=== PATIENT | female | born 1950 | race Caucasian/White ===

== ENCOUNTER 2018-04-26 20:08 | Inpatient (IN) | payer OTHER ==
[2018-04-26] MEDS ORDERED: ALBUTEROL 2.5 MG/3 ML NEB SOL ONE ×3 (20:20→21:39)
[2018-04-26] MEDS ORDERED: IPRATROPIUM BROM 0.5MG/2.5ML ONE ×3 (20:20→21:39)
[2018-04-26] MEDS ORDERED: LORazepam 2 MG/ML VIAL ONE (20:29)
[2018-04-26] MEDS ORDERED: Magnesium Sulfate 1gm IVPB 2 GM/100 ML BAG IV ONE (20:30)
--- NOTE | 2018-04-26 20:57 | RAD REPORT ---
EXAM DESCRIPTION: RAD - Chest Single View - 04/26/2018 8:47 pm CLINICAL HISTORY: COPD Chest pain. COMPARISON: 05/04/2017 FINDINGS: Portable technique limits examination quality. The lungs are mildly emphysematous but grossly clear. The heart is normal in size. No displaced fract ures.Aortic atherosclerosis. Prominent degenerative change right shoulder. IMPRESSION: No acute intrathoracic process suspected.
[2018-04-26 21:10] LABS: Absolute Lymphocytes (CBC) 4.8 K/uL (0.7-4.9); Absolute Monocytes 1.4 K/uL (0.1-1.3); Absolute Neutrophil 10.5 K/uL (1.8-8.0); Basophils % 1.2 % (0-1.3); Eosinophils % 0.6 % (0-4.4); Hematocrit 36.6 % (36.0-45.0); Lymphocytes % 28.4 % (15.3-44.8); MCH 30.9 pg (27.0-35.0); MCV 93.1 fL (80-100); MPV 9.3 fL (7.6-11.3); RBC Red Blood Cell Count 3.93 M/uL (3.86-4.86)
[2018-04-26 21:16] LABS: Protime INR 0.97
[2018-04-26 21:25] LABS: Albumin 2.9 g/dL (3.4-5.0); Bilirubin Direct 0.2 mg/dL (0-0.2); Bilirubin Total 0.2 mg/dL (0.2-1.0); Potassium 4.6 mmol/L (3.5-5.1); Protein, Total 7.8 g/dL (6.4-8.2)
[2018-04-26 21:35] LABS: Urine Blood NEGATIVE (NEG); Urine Glucose NEGATIVE (NEG); Urine Protein 2+ (NEG); Urine Specific Gravity 1.025 (1.005-1.030); Urine pH 5.5 (5.0-7.0)
[2018-04-26 21:37] LABS: Urine Bacteria >50 /HPF (<20); Urine Culture Reflex Order REFLEXED; Urine RBC <5 /HPF (NONE SEEN); Urine Trichomonas PRESENT (NONE SEEN)
[2018-04-26] MEDS ORDERED: FENTANYL CITR 100 MCG/2 ML ONE (21:57)
[2018-04-26] MEDS ORDERED: DEXAMETHASONE 10 MG/ML VIAL ONE (21:59)
[2018-04-26] MEDS ORDERED: AZITHROMYCIN 500 MG/250 ML BAG ONE (22:00)
[2018-04-26] MEDS ORDERED: CEFTRIAXONE/SWI 1gm 2 GM/20 ML SYR ONE (22:00)
--- NOTE | 2018-04-26 23:35 | EDPHYS ---
Physician Documentation [facility] Name: Brisa Jaime Age: 68 yrs Sex: Female : 1950 Arrival Date: 04/26/2018 Time: 20:12 Bed 6 Private MD: ED Physician Vladimir Cooper HPI: 04/26 22:12 This 68 yrs old Female presents to ER via Wheelchair with complaints of wa shortness of breath. 22:12 The patient has shortness of breath at rest. Onset: The symptoms/episode began/occurred wa 2 day(s) ago. Duration: The symptoms are continuous, and are steadily getting worse. The patient's shortness of breath has no apparent modifying factors. Associated signs and symptoms: The patient has no apparent associated signs or symptoms. Severity of symptoms: At their worst the symptoms were moderate in the emergency department the symptoms are worse moderately. The patient has experienced similar episodes in the past, multiple times, h/o COPD. pt still smokes. The patient has not recently seen a physician. Historical: - Allergies: 20:31 No Known Allergies; fc - Home Meds: 20:31 Unable to obtain [Active]; fc - PMHx: 20:31 Hypertension; PAD; PVD; hyperglycemia; Osteomyelitis; COPD; fc - PSHx: 20:31 Left foot surg; fc - Immunization history:: Last tetanus immunization: unknown. - Social history:: Smoking status: Patient uses tobacco products, denies chronic smoking, but will smoke occasionally. - Ebola Screening: : Patient negative for fever greater than or equal to 101.5 degrees Fahrenheit, and additional compatible Ebola Virus Disease symptoms Patient denies exposure to infectious person Patient denies travel to an Ebola-affected area in the 21 days before illness onset. - Family history:: not pertinent. - Hospitalizations: : No recent hospitalization is reported. ROS: 22:17 Constitutional: Negative for fever, chills, and weight loss, Eyes: Negative for injury, wa pain, redness, and discharge, ENT: Negative for injury, pain, and discharge, Neck: Negative for injury, pain, and swelling, Cardiovascular: Negative for chest pain, palpitations, and edema, Abdomen/GI: Negative for abdominal pain, nausea, vomiting, diarrhea, and constipation, Back: Negative for injury and pain, : Negative for injury, bleeding, discharge, and swelling, MS/Extremity: Negative for injury and deformity, Skin: Negative for injury, rash, and discoloration, Neuro: Negative for headache, weakness, numbness, tingling, and seizure. 22:17 Respiratory: Positive for shortness of breath, at rest. Negative for cough, sputum production. 22:17 All other systems are negative. Exam: 22:17 Head/Face: Normocephalic, atraumatic. Eyes: Pupils equal round and reactive to light, wa extra-ocular motions intact. Lids and lashes normal. Conjunctiva and sclera are non-icteric and not injected. Cornea within normal limits. Periorbital areas with no swelling, redness, or edema. ENT: Nares patent. No nasal discharge, no septal abnormalities noted. Tympanic membranes are normal and external auditory canals are clear. Oropharynx with no redness, swelling, or masses, exudates, or evidence of obstruction, uvula midline. Mucous membranes moist. Neck: Trachea midline, no thyromegaly or masses palpated, and no cervical lymphadenopathy. Supple, full range of motion without nuchal rigidity, or vertebral point tenderness. No Meningismus. Chest/axilla: Normal chest wall appearance and motion. Nontender with no deformity. No lesions are appreciated. Cardiovascular: Regular rate and rhythm with a normal S1 and S2. No gallops, murmurs, or rubs. Normal PMI, no JVD. No pulse deficits. Abdomen/GI: Soft, non-tender, with normal bowel sounds. No distension or tympany. No guarding or rebound. No evidence of tenderness throughout. Back: No spinal tenderness. No costovertebral tenderness. Full range of motion. MS/ Extremity: Pulses equal, no cyanosis. Neurovascular intact. Full, normal range of motion. Neuro: Awake and alert, GCS 15, oriented to person, place, time, and situation. Cranial nerves II-XII grossly intact. Motor strength 5/5 in all extremities. Sensory grossly intact. Cerebellar exam normal. Normal gait. 22:17 Constitutional: The patient appears alert, anxious, in obvious distress, moderately distressed. 22:17 Respiratory: moderate respiratory distress is noted, Respirations: tachypnea, that is moderate, Breath sounds: wheezing: that is moderate, is heard diffusely, Respiratory rate: elevated 22:20 Skin: Appearance: Color: dusky, diaphoretic. wa Vital Signs: 20:15 BP 134 / 73; Pulse 77; Resp 28; Pulse Ox 93% on R/A; Weight 43.09 kg; Height 5 ft. 0 fc in. (152.40 cm); Pain 0/10; 21:15 BP 101 / 59; Pulse 75; Resp 25; Pulse Ox 96% ; bp 22:57 BP 104 / 55; Pulse 71; Resp 24; Pulse Ox 100% ; bp 23:51 BP 85 / 51; Pulse 64; Resp 24; Pulse Ox 100% on BiPAP; bp 04/27 01:00 BP 107 / 62; Pulse 63; Resp 24; Pulse Ox 93% on R/A; bp 01:47 BP 95 / 54; Pulse 70; Resp 20; Pulse Ox 92% on R/A; bp 04/26 20:15 Body Mass Index 18.55 (43.09 kg, 152.40 cm) fc MDM: 04/26 20:17 Patient medically screened. nh 22:20 Differential diagnosis: Anxiety Reaction asthma, Bronchitis CHF exacerbation, Chronic nh Obstructive Pulmonary Disease pneumonia, pulmonary edema, reactive airway disease. 23:30 Data reviewed: vital signs, nurses notes. Test interpretation: by ED physician or nh midlevel provider: Labs noted for hyperglycemia at 201. elevated BNP 6650. UA noted for pyuria 10-20 wbc. positive for trichomonas. CXR: no acute process. Response to treatment: the patient's symptoms have markedly improved after treatment. Physician consultation: Mariza Lemons MD was called at 23:33. Admission orders: after a detailed discussion of the patient's condition and case, the admit orders are written by ms. 04/27 00:16 Test interpretation: by ED physician or midlevel provider: EKG: HR 73. nml sinus. no nh acute dysrhythmic changes. 04/26 20:18 Order name: Blood Culture Adult (2) nh 04/26 20:18 Order name: BMP; Complete Time: 23:29 nh 04/26 20:18 Order name: CBC with Diff; Complete Time: 23:29 nh 04/26 20:18 Order name: Hepatic Function; Complete Time: 23:29 nh 04/26 20:18 Order name: Magnesium; Complete Time: 23:30 nh 04/26 20:18 Order name: NT PRO-BNP; Complete Time: 23:29 nh 04/26 20:18 Order name: XRAY CXR (1 view); Complete Time: 23:30 nh 04/26 20:18 Order name: PT-INR; Complete Time: 23:30 nh 04/26 20:18 Order name: Troponin (emerg Dept Use Only); Complete Time: 23:30 nh 04/26 21:14 Order name: Urine Microscopic Only; Complete Time: 23:29 04/26 21:23 Order name: Urine Dipstick--Ancillary (enter results); Complete Time: 23:29 jw5 04/26 21:35 Order name: ABG nh 04/26 21:35 Order name: ABG Arterial Blood Gas [facility] 04/26 21:38 Order name: Urine Culture [facility] 04/26 20:18 Order name: EKG; Complete Time: 20:19 nh 04/26 20:18 Order name: Cardiac monitoring; Complete Time: 20:21 nh 04/26 20:18 Order name: EKG - Nurse/Tech; Complete Time: 20:21 nh 04/26 20:18 Order name: IV Saline Lock; Complete Time: 20:51 nh 04/26 20:18 Order name: Labs collected and sent; Complete Time: 20:51 nh 04/26 20:19 Order name: BIPAP nh 04/26 20:18 Order name: O2 Per Protocol; Complete Time: 20:52 nh 04/26 20:18 Order name: O2 Sat Monitoring; Complete Time: 20:52 nh 04/26 20:18 Order name: Urine Dipstick-Ancillary (obtain specimen); Complete Time: 21:26 nh Administered Medications: 04/26 20:21 Drug: Albuterol 2.5 mg Route: Inhalation; bp 20:21 Drug: AtroVENT Aerosol 0.5 mg Route: Inhalation; bp 20:30 Drug: Magnesium Sulfate 2 grams Route: IVPB; Infused Over: 2 hrs; Site: right forearm; bp 04/27 00:00 Follow up: IV Status: Completed infusion bp 04/26 20:30 Drug: Ativan 0.5 mg Route: IVP; Site: right forearm; bp 20:51 Follow up: Response: Anxiety decreased bp 21:37 Drug: Albuterol 2.5 mg Route: Inhalation; bp 21:37 Drug: AtroVENT Aerosol 0.5 mg Route: Inhalation; bp 21:56 Drug: fentaNYL (PF) 50 mcg Route: IVP; Site: right forearm; bp 22:30 Follow up: Response: No adverse reaction; Marked relief of symptoms ea 21:59 Drug: Decadron - Dexamethasone 10 mg Route: IVP; Site: right forearm; ea 22:15 Follow up: Response: No adverse reaction ea 21:59 Drug: Rocephin - (cefTRIAXone) 2 grams Route: IVPB; Infused Over: 30 mins; Site: right ea forearm; 04/27 00:01 Follow up: IV Status: Completed infusion bp 04/26 22:47 Drug: Zithromax 500 mg Route: IVPB; Infused Over: 1 hrs; Site: right forearm; ea 04/27 00:01 Follow up: IV Status: Completed infusion bp Disposition: 04/26 23:33 Critical Care:. Critical Care:. nh Disposition: 04/26/18 23:34 Hospitalization ordered by Mariza Lemons for Inpatient Admission. Preliminary diagnosis are Acute Dyspnea, COPD Exacerbation, Acute UTI. - Bed requested for Telemetry/MedSurg (Inpatient). - Status is Inpatient Admission. bp - Condition is Stable. - Problem is an acute exacerbation. - Symptoms have improved. UTI on Admission? Yes Critical care time excluding procedures: 23:33 Critical care time: Bedside Care: 20 minutes, Consultation: 5 minutes, Family wa Intervention: 5 minutes. Total time: 30 minutes Signatures: Dispatcher [employer] EDNa Gunn RN RN kl Chretien, Felicia RN Dory Rosas RN RN ea Appiah, William, MD MD wa Peltier, Brian, RN RN bp Corrections: (The following items were deleted from the chart) 04/27 01:09 04/26 23:34 Hospitalization Ordered by Mariza Lemons MD for Inpatient Admission. cintia Preliminary diagnosis is Acute Dyspnea; COPD Exacerbation; Acute UTI. Bed requested for Telemetry/MedSurg (Inpatient). Status is Inpatient Admission. Condition is Stable. Problem is an acute exacerbation. Symptoms have improved. UTI on Admission? Yes. nh 04/27 01:47 01:09 04/26/2018 23:34 Hospitalization Ordered by Mariza Lemons MD for Inpatient bp Admission. Preliminary diagnosis is Acute Dyspnea; COPD Exacerbation; Acute UTI. Bed requested for Telemetry/MedSurg (Inpatient). Status is Inpatient Admission. Condition is Stable. Problem is an acute exacerbation. Symptoms have improved. UTI on Admission? Yes. kl
--- NOTE | 2018-04-26 23:35 | ER ---
Nurse's Notes [facility] Name: Brisa aJime Age: 68 yrs Sex: Female : 1950 Arrival Date: 04/26/2018 Time: 20:12 Bed 6 Private MD: Diagnosis: Acute Dyspnea;COPD Exacerbation;Acute UTI Presentation: 04/26 20:15 Presenting complaint: Patient states: that she has COPD and has been having trouble fc breathing since yesterday. Has cough but is not coughing any sputum up. Denies any fever. Transition of care: patient was not received from another setting of care. Onset of symptoms was April 25, 2018. Risk Assessment: Do you want to hurt yourself or someone else? Patient reports no desire to harm self or others. Initial Sepsis Screen: Does the patient meet any 2 criteria? RR > 20 per min. Yes Does the patient have a suspected source of infection? No. Patient's initial sepsis screen is negative. Care prior to arrival: None. 20:15 Method Of Arrival: Wheelchair fc 20:15 Acuity: ILANA 2 fc Historical: - Allergies: 20:31 No Known Allergies; fc - Home Meds: 20:31 Unable to obtain [Active]; fc - PMHx: 20:31 Hypertension; PAD; PVD; hyperglycemia; Osteomyelitis; COPD; fc - PSHx: 20:31 Left foot surg; fc - Immunization history:: Last tetanus immunization: unknown. - Social history:: Smoking status: Patient uses tobacco products, denies chronic smoking, but will smoke occasionally. - Ebola Screening: : Patient negative for fever greater than or equal to 101.5 degrees Fahrenheit, and additional compatible Ebola Virus Disease symptoms Patient denies exposure to infectious person Patient denies travel to an Ebola-affected area in the 21 days before illness onset. - Family history:: not pertinent. - Hospitalizations: : No recent hospitalization is reported. Screenin:26 Abuse screen: Denies threats or abuse. Nutritional screening: No deficits noted. fc Tuberculosis screening: No symptoms or risk factors identified. Fall Risk None identified. Assessment: 20:15 General: Appears distressed, comfortable, slender, Behavior is agitated, anxious, bp Smells of CIGARETTES. Pain: Denies pain. Neuro: Level of Consciousness is awake, alert, Oriented to Appropriate for age. Cardiovascular: Rhythm is sinus rhythm. Respiratory: Airway is patent Respiratory effort is labored, shallow, using tripod position, Respiratory pattern is tachypnea Breath sounds with wheezes bilaterally. GI: No signs and/or symptoms were reported involving the gastrointestinal system. : No signs and/or symptoms were reported regarding the genitourinary system. EENT: No deficits noted. Derm: No deficits noted. Musculoskeletal: Circulation, motion, and sensation intact. Range of motion: intact in all extremities. 20:30 Reassessment: PT ANXIOUS, STATING SHE CANNOT TOLERATE BIPAP MASK. REQUIRING FREQUENT bp REDIRECTION TO KEEP BIPAP MASK IN PLACE. MEDS ORDERED/GIVEN FOR ANXIETY. 21:10 Reassessment: PT CONTINUING TO BE UNCOOPERATIVE, REMOVING BIPAP AND THEN SHOUTING AT bp STAFF TO HELP HER MORE. PT REORIENTED TO APPROPRIATE BEHAVIOR AND HEALTH CARE ACTIVITIES, NOW AGREEING TO ATTEMPT BIPAP AGAIN. 21:24 Reassessment: PT MOVED TO NC, BUT STILL UNCOOPERATIVE, SWATTING AT STAFF. ORIENTATION bp ASSESSED, PT REMAINS AOx4. PT REORIENTED TO INAPPROPRIATENESS OF ATTEMPTING TO STRIKE PCT. 21:36 Reassessment: PT CONTINUING TO BE UNCOOPERATIVE, MD AND RT AT B/S. bp 21:56 Reassessment: PT CONTINUING TO REFUSE BIPAP, MD AWARE. bp 22:38 Reassessment: PT REMOVED BIPAP AGAIN, ASSESSED AOx4, STRIKING STAFF WHEN ATTEMPTING TO bp REPLACE BIPAP. ATTEMPTING TO REORIENT PT TO APPROPRIATE BEHAVIOR. 23:50 Reassessment: ADMIT IN PROCESS. BIPAP REPLACED AFTER D/C BY PT. PT REMAINS bp UNCOOPERATIVE BUT REDIRECTABLE. 04/27 01:00 Reassessment: HOSPITALIST AT B/S. PT SWITCHED TO NC FROM BIPAP, BUT REFUSING TO KEEP NC bp IN PLACE. AWARE. Vital Signs: 04/26 20:15 BP 134 / 73; Pulse 77; Resp 28; Pulse Ox 93% on R/A; Weight 43.09 kg; Height 5 ft. 0 fc in. (152.40 cm); Pain 0/10; 21:15 BP 101 / 59; Pulse 75; Resp 25; Pulse Ox 96% ; bp 22:57 BP 104 / 55; Pulse 71; Resp 24; Pulse Ox 100% ; bp 23:51 BP 85 / 51; Pulse 64; Resp 24; Pulse Ox 100% on BiPAP; bp 04/27 01:00 BP 107 / 62; Pulse 63; Resp 24; Pulse Ox 93% on R/A; bp 01:47 BP 95 / 54; Pulse 70; Resp 20; Pulse Ox 92% on R/A; bp 04/26 20:15 Body Mass Index 18.55 (43.09 kg, 152.40 cm) fc ED Course: 04/26 20:12 Patient arrived in ED. bp 20:15 Arm band placed on Patient placed in an exam room, on a stretcher. fc 20:15 Patient has correct armband on for positive identification. Placed in gown. Bed in low fc position. Call light in reach. Side rails up X2. monitor technician on. Pulse ox on. NIBP on. 20:17 Vladimir Cooper MD is Attending Physician. wa 20:20 Will Black, KIMMY is Primary Nurse. bp 20:21 Inserted saline lock: 22 gauge in right forearm, using aseptic technique. Blood bp collected. 20:25 Triage completed. fc 20:27 No provider procedures requiring assistance completed. fc 20:44 X-ray completed. Portable x-ray completed in exam room. Patient tolerated procedure sw well. 20:47 XRAY CXR (1 view) In Process Unspecified. EDMS 23:33 Mariza Lemons MD is Hospitalizing Provider. ms 04/27 01:23 Patient admitted, IV remains in place. bp Administered Medications: 04/26 20:21 Drug: Albuterol 2.5 mg Route: Inhalation; bp 20:21 Drug: AtroVENT Aerosol 0.5 mg Route: Inhalation; bp 20:30 Drug: Magnesium Sulfate 2 grams Route: IVPB; Infused Over: 2 hrs; Site: right forearm; bp 04/27 00:00 Follow up: IV Status: Completed infusion bp 04/26 20:30 Drug: Ativan 0.5 mg Route: IVP; Site: right forearm; bp 20:51 Follow up: Response: Anxiety decreased bp 21:37 Drug: Albuterol 2.5 mg Route: Inhalation; bp 21:37 Drug: AtroVENT Aerosol 0.5 mg Route: Inhalation; bp 21:56 Drug: fentaNYL (PF) 50 mcg Route: IVP; Site: right forearm; bp 22:30 Follow up: Response: No adverse reaction; Marked relief of symptoms ea 21:59 Drug: Decadron - Dexamethasone 10 mg Route: IVP; Site: right forearm; ea 22:15 Follow up: Response: No adverse reaction ea 21:59 Drug: Rocephin - (cefTRIAXone) 2 grams Route: IVPB; Infused Over: 30 mins; Site: right ea forearm; 04/27 00:01 Follow up: IV Status: Completed infusion bp 04/26 22:47 Drug: Zithromax 500 mg Route: IVPB; Infused Over: 1 hrs; Site: right forearm; ea 04/27 00:01 Follow up: IV Status: Completed infusion bp Outcome: 04/26 23:34 Decision to Hospitalize by Provider. ms 04/27 01:23 Condition: stable bp Instructed on the need for admit. 01:45 Admitted to Tele accompanied by tech, via stretcher, room 405, with chart, Report bp called to DAVINA ONEAL 01:47 Patient left the ED. bp Signatures: Dispatcher [employer] EDMS Nan Galdamez RN RN Belkis Villalta Elena RN RN Vladimir Cooper MD MD wa Peltier, Brian, RN RN bp
[2018-04-27] MEDS ORDERED: ONDANSETRON 4 MG/2 ML VIAL IV PRN (02:19)
[2018-04-27] MEDS ORDERED: Levofloxacin 750mg IV 750 MG/150 ML BAG IV SCH (02:19)
[2018-04-27 02:41] VITALS: BMI 18.6
[2018-04-27] MEDS: ALBUTEROL 2.5 MG/3 ML NEB SOL NEB SCH ×2 (03:20→08:28)
[2018-04-27] MEDS: IPRATROPIUM BROM 0.5MG/2.5ML NEB SCH ×2 (03:20→08:28)
[2018-04-27] MEDS: METHYLPREDNISOLONE 40 MG INJ IV SCH ×4 (06:00→23:08)
--- NOTE | 2018-04-27 09:20 | P.HP ---
Certification for Inpatient Patient admitted to: Inpatient With expected LOS: >2 Midnights Practitioner: I am a practitioner with admitting privileges, knowledge of patient current condition, hospital course, and medical plan of care. Services: Services provided to patient in accordance with Admission requirements found in Title 42 Section 412.3 of the Code of Federal Regulations Patient History Date of Service: 04/27/18 Reason for admission: COPD exacerbation History of Present Illness: Ms Jaime is a 68 years old woman with history of COPD, tobacco abuse, who came to ED on respiratory distress, who start with Progressive SOB, associated with dry cough. No history of fever or chills. The patient O2 sat at arrival was 93% on RA. She was belligerant and uncooperative. She require BiPAP initially, Lab work remarkable for leukocytosis, elevated procalcitonin, CXR shows no acute infiltrate. Allergies No Known Allergies Allergy (Verified 05/02/17 19:29) Home medications list reviewed: Yes - Past Medical/Surgical History Diabetic: No -: Hypertension -: COPD -: Tobacco abuse -: History of infection -: Insomnia -: Claustrophobia -: Hysterectomy -: Tonsilectomy Psychosocial/ Personal History: The patient is a . She has 1 child. - Family History Mother History Unknown: Yes -: Other (see notes) - Social History Smoking Status: Current every day smoker Counseled patient to stop smoking for: less than 10 minutes Smoking therapy provided: Yes Patient receptive to therapy: Yes Alcohol use: No CD- Drugs: No Caffeine use: Yes Place of Residence: Home Review of Systems 10-point ROS is otherwise unremarkable Physical Examination - Vital Signs Temperature: 98.0 F Blood Pressure: 103/64 Pulse: 72 Respirations: 18 Pulse Ox (%): 96 - Physical Exam General: Alert, In no apparent distress HEENT: Atraumatic, PERRLA, Mucous membr. moist/pink, EOMI, Sclerae nonicteric Neck: Supple, 2+ carotid pulse no bruit, No LAD, Without JVD or thyroid abnormality Respiratory: Diminished, Expiratory wheezes Cardiovascular: Regular rate/rhythm, Normal S1 S2 Gastrointestinal: Normal bowel sounds, No tenderness Musculoskeletal: No tenderness Integumentary: No rashes Neurological: Normal speech, Normal strength at 5/5 x4 extr, Normal tone, Normal affect Lymphatics: No axilla or inguinal lymphadenopathy - Studies Laboratory Data (last 24 hrs) 04/26/18 20:30: PT 11.5, INR 0.97 04/26/18 20:30: WBC 17.0 H, Hgb 12.2, Hct 36.6, Plt Count 379 04/26/18 20:30: Sodium 139, Potassium 4.6, BUN 17, Creatinine 1.10, Glucose 201 H, Magnesium 2.0, Total Bilirubin 0.2, AST 14 L, ALT 12, Alkaline Phosphatase 67 Assessment and Plan - Problems (Diagnosis) (1) Acute respiratory failure Current Visit: Yes Status: Acute (2) COPD exacerbation Current Visit: Yes Status: Acute (3) Acute renal failure Current Visit: Yes Status: Acute Qualifiers: Acute renal failure type: unspecified Qualified Code(s): N17.9 - Acute kidney failure, unspecified - Plan The patient will be admitted to the hospital due to acute respiratory failure, secondary to COPD exacerbation. Blood cultures in process, continue with IV antibiotics, IV steroids and breathing treatments. Consult Dr House. - Advance Directives Does patient have a Living Will: No Does patient have a Durable POA for Healthcare: No - Code Status/Comfort Care Code Status Assessed: Yes Code Status: Do Not Resuscitate
--- NOTE | 2018-04-27 09:21 | EKG ---
Test Date: 2018-04-26 Test Time: 20:23:25 Concrete Buildings Assembler: RADHA MEASUREMENT RESULTS: Intervals: Rate: 73 VT: 122 QRSD: 68 QT: 378 QTc: 416 [place]: P: 43 VT: 122 QRS: 77 T: 75 INTERPRETIVE STATEMENTS: Normal sinus rhythm Normal ECG No previous ECG available for comparison Electronically Signed On 04-27-18 07:33:24 CDT by Daniel Brush
[2018-04-27] MEDS ORDERED: IPRATROPIUM BROM 0.5MG/2.5ML NEB PRN (09:26)
[2018-04-27] MEDS ORDERED: ALBUTEROL 2.5 MG/3 ML NEB SOL NEB PRN (09:26)
[2018-04-27] MEDS ORDERED: ZOLPIDEM TARTRATE 5 MG TABLET PO PRN (09:27)
--- NOTE | 2018-04-27 09:35 | P.PN ---
Subjective Date of Service: 04/27/18 Primary Care Provider: Dr. Rothman; ID-Dr. Guadalupe Chief Complaint: COPD exacerbation Subjective: Other (Patient is doing better than last night. Patient was on BiPAP now on nasal cannula. She does not appear in any respiratory distress.) Physical Examination - Vital Signs Temperature: 98.0 F Blood Pressure: 103/64 Pulse: 72 Respirations: 18 Pulse Ox (%): 96 - Physical Exam General: Alert, In no apparent distress, Oriented x3, Cooperative HEENT: Atraumatic, Other (Dry mucous membranes) Neck: Supple Respiratory: Expiratory wheezes (Bilateral), Inspiratory wheezes (Bilateral) Cardiovascular: Normal pulses, Regular rate/rhythm Gastrointestinal: Normal bowel sounds, Soft and benign, Non-distended, No tenderness, No masses, No rebound, No guarding Musculoskeletal: No erythema, No tenderness, No warmth Integumentary: Other (Muscle wasting to the upper lower extremity. Chronic healed ulcer to the left lateral region of the foot) Neurological: Normal speech, Normal strength at 5/5 x4 extr, Normal tone - Studies Laboratory Data (last 24 hrs) 04/26/18 20:30: PT 11.5, INR 0.97 04/26/18 20:30: WBC 17.0 H, Hgb 12.2, Hct 36.6, Plt Count 379 04/26/18 20:30: Sodium 139, Potassium 4.6, BUN 17, Creatinine 1.10, Glucose 201 H, Magnesium 2.0, Total Bilirubin 0.2, AST 14 L, ALT 12, Alkaline Phosphatase 67 Medications List Reviewed: Yes Assessment & Plan - Problems (Diagnosis) (1) Foot ulcer Current Visit: Yes Status: Chronic Plan: Healed left foot ulcer. Patient has not seen wound care in quite some time. No significant erythema noted. Will consult her infectious disease doctor to evaluate and make recommendations. Patient will need follow up as an outpatient. No need for antibiotic therapy at this time. Qualifiers: Laterality: left (2) Dehydration Current Visit: Yes Status: Acute Plan: Patient appears dry. Will hold her blood pressure medication. Will start IV fluids. Patient with renal insufficiency. Will monitor lab. (3) Renal insufficiency Current Visit: Yes Status: Acute Plan: Likely from dehydration. Will continue with IV fluids. Will monitor and reassess. (4) Insomnia Current Visit: Yes Status: Chronic Plan: Patient requests medication. Will provide medication tonight as needed. Qualifiers: Insomnia type: unspecified Qualified Code(s): G47.00 - Insomnia, unspecified (5) Hx of osteomyelitis Current Visit: Yes Status: Chronic Plan: Continue as above. No infectious process noted to her left foot. Will consult her infectious disease doctor to evaluate and make sure she has follow up care. (6) COPD (chronic obstructive pulmonary disease) Onset Date: 05/03/17 Current Visit: No Status: Acute Plan: Acute exacerbation noted. Patient required BiPAP last night. Patient no longer requiring this. Will continue to wean off oxygen. Will continue with steroid, COPD treatment. Pulmonology consulted. There was some question of possible pneumonia. Patient on IV antibiotic therapy. Will recheck chest x-ray today. Will check pro calcitonin. Qualifiers: COPD type: COPD with acute exacerbation Qualified Code(s): J44.1 - Chronic obstructive pulmonary disease with (acute) exacerbation (7) Former tobacco use Onset Date: 05/03/17 Current Visit: No Status: Chronic Plan: Continue to address tobacco cessation (8) Hypertension Onset Date: 05/03/17 Current Visit: No Status: Chronic Plan: Will hold her blood pressure medication at this time due to low blood pressure. If her blood pressure increases then will restart her medication. Qualifiers: Hypertension type: essential hypertension Qualified Code(s): I10 - Essential (primary) hypertension (9) PVD (peripheral vascular disease) Onset Date: 05/08/17 Current Visit: No Status: Chronic Plan: Will provide DVT prophylaxis. Will start aspirin 81 mg. (10) Pneumonia Current Visit: Yes Status: Suspected Plan: Pneumonia suspected. Will recheck chest x-ray. Will check pro calcitonin. Patient on IV antibiotic therapy. Qualifiers: Laterality: unspecified laterality Lung location: unspecified part of lung Discharge Plan: Home Plan to discharge in: 24 Hours Time Spent Managing Pts Care (In Minutes): 55
[2018-04-27 09:36] LABS: Absolute Lymphocytes (CBC) 0.6 K/uL (0.7-4.9); Absolute Monocytes 0.4 K/uL (0.1-1.3); Absolute Neutrophil 15.5 K/uL (1.8-8.0); Basophils % 0.1 % (0-1.3); Hematocrit 36.1 % (36.0-45.0); Lymphocytes % 3.5 % (15.3-44.8); MCH 30.9 pg (27.0-35.0); MCV 93.3 fL (80-100); MPV 9.1 fL (7.6-11.3); Monocytes % 2.6 % (3.3-12.3); RBC Red Blood Cell Count 3.87 M/uL (3.86-4.86)
[2018-04-27 09:59] LABS: Anisocytosis 2+; Blood Morphology Comment NOTED (NOT SEEN); Macrocytosis 1+; Platelet Estimate ADEQ
[2018-04-27] MEDS: NA CHLORIDE 0.9% 1,000 ML IV SCH ×2 (10:00→19:34)
[2018-04-27] MEDS: ENOXAPARIN 40 MG/0.4 ML SQ SCH (10:16)
--- NOTE | 2018-04-27 15:18 | RAD REPORT ---
EXAM DESCRIPTION: RAD - Chest Single View - 04/27/2018 3:09 pm CLINICAL HISTORY: Follow up COPD Chest pain. COMPARISON: Chest Single View dated 04/26/2018; Chest Single View dated 05/04/2017 FINDINGS: Portable technique limits examination quality. Since the prior study, right lung base opacity and right pleural effusion has developed which probabl y indicates aspiration/pneumonia. Mild asymmetric interstitial pulmonary opacities, greater on the ri ght, presumably related to mild interstitial pulmonary edema, asymmetric. The heart is normal in size . No displaced fractures. IMPRESSION: Mild right lung base parenchymal and pleural opacification is noted, new since comparati ve study. Most likely, this represents aspiration / developing pneumonia.
--- NOTE | 2018-04-27 15:39 | P.CNS ---
Date of Consult: 04/27/18 Primary Care Provider: Dr. Rothman; ID-Dr. Guadalupe Chief Complaint: COPD exacerbation History of Present Illness: Patient is 68 years of age admitted with worsening dyspnea for the past 2 days she has a history of COPD continues to smoke a not been using any bronchodilators at home denies any edema cough hemoptysis Patient admitted with a diagnosis of COPD exacerbation Patient is in no distress talking in full sentences t Allergies No Known Allergies Allergy (Verified 05/02/17 19:29) - Past Medical/Surgical History Diabetic: No -: Hypertension -: COPD -: Tobacco abuse -: History of infection -: Insomnia -: Claustrophobia -: Hysterectomy -: Tonsilectomy Psychosocial/ Personal History: The patient is a . She has 1 child. - Family History Mother History Unknown: Yes Medical History: Other (see notes) - Social History Smoking Status: Current some day smoker Alcohol use: No CD- Drugs: No Caffeine use: Yes Place of Residence: Home Review of Systems 10-point ROS is otherwise unremarkable General: Weakness Respiratory: Shortness of Breath Physical Examination Temp Pulse Resp BP Pulse Ox 98.8 F 78 18 103/54 L 96 04/27/18 12:00 04/27/18 12:00 04/27/18 12:00 04/27/18 12:00 04/27/18 12:00 General: Alert, Oriented x3 HEENT: Atraumatic Neck: Supple Respiratory: Clear to auscultation bilaterally, Diminished Cardiovascular: No edema Gastrointestinal: Normal bowel sounds, Soft and benign Musculoskeletal: No clubbing, No swelling Laboratory Data (last 24 hrs) 04/26/18 20:30: PT 11.5, INR 0.97 04/26/18 20:30: WBC 17.0 H, Hgb 12.2, Hct 36.6, Plt Count 379 04/26/18 20:30: Sodium 139, Potassium 4.6, BUN 17, Creatinine 1.10, Glucose 201 H, Magnesium 2.0, Total Bilirubin 0.2, AST 14 L, ALT 12, Alkaline Phosphatase 67 - Problems (1) COPD exacerbation Current Visit: Yes Status: Acute Plan: Patient is 68 years of age active smoker admitted with COPD exacerbation she cannot of a nebulize is not taking any bronchodilators at home patient's white count was mildly elevated labs reviewed BNP elevated chest x-ray shows COPD changes vital signs stable room-air oxygenation satisfactory Dc levofloxacin patient can be discharged home tomorrow I recommend a long-acting bronchodilator either Advair or Symbicort in addition to low-dose prednisone 10 mg twice a day for 10 days patient has been console not to smoke she probably has underlying cor pulmonale a she is not coughing up any productive phlegm antibiotics not indicated
[2018-04-27] MEDS: ARFORMOTEROL TARTRATE 15 MCG/2 ML VIAL.NEB NEB SCH (20:19)
[2018-04-27] MEDS: PROMOD 30 ML DOSE PO SCH (20:26)
[2018-04-27] MEDS: ACETAMINOPHEN 500 MG TAB PO PRN (23:06)
[2018-04-28 04:46] LABS: Urine Appearance CLEAR; Urine Bilirubin NEGATIVE (NEG); Urine Blood NEGATIVE (NEG); Urine Color YELLOW; Urine Glucose NEGATIVE (NEG); Urine Protein NEGATIVE (NEG)
[2018-04-28 04:47] LABS: Urine Microscopic Reflex ORDER UMIC
[2018-04-28] MEDS: NA CHLORIDE 0.9% 1,000 ML IV SCH (04:54)
[2018-04-28] MEDS: METHYLPREDNISOLONE 40 MG INJ IV SCH (05:05)
[2018-04-28 05:09] LABS: Urine Culture Reflex Order NOT NEEDED
[2018-04-28 05:10] LABS: Urine Bacteria <20 /HPF (<20); Urine RBC <5 /HPF (NONE SEEN); Urine Trichomonas PRESENT (NONE SEEN)
[2018-04-28 06:37] LABS: Absolute Lymphocytes (CBC) 0.6 K/uL (0.7-4.9); Absolute Monocytes 0.7 K/uL (0.1-1.3); Absolute Neutrophil 18.1 K/uL (1.8-8.0); Basophils % 0.1 % (0-1.3); Hematocrit 36.1 % (36.0-45.0); Lymphocytes % 3.2 % (15.3-44.8); MCH 30.4 pg (27.0-35.0); MCV 92.9 fL (80-100); MPV 8.5 fL (7.6-11.3); Monocytes % 3.4 % (3.3-12.3); RBC Red Blood Cell Count 3.89 M/uL (3.86-4.86)
[2018-04-28 06:51] LABS: Magnesium 1.9 mg/dL (1.8-2.4); Potassium 3.6 mmol/L (3.5-5.1)
[2018-04-28] MEDS ORDERED: levoFLOXacin 500 MG TAB PO ONE (06:54)
[2018-04-28] MEDS ORDERED: metroNIDAZOLE 500 MG TABLET PO ONE (07:20)
[2018-04-28] MEDS: ARFORMOTEROL TARTRATE 15 MCG/2 ML VIAL.NEB NEB SCH (08:18)
--- NOTE | 2018-04-28 08:41 | P.PN ---
Subjective Date of Service: 04/28/18 Primary Care Provider: Dr. Rothman; ID-Dr. Guadalupe Chief Complaint: COPD exacerbation Subjective: Improving (Patient still with some shortness of breath with exertion.) Physical Examination - Vital Signs Temperature: 98.1 F Blood Pressure: 160/78 Pulse: 98 Respirations: 20 Pulse Ox (%): 91 - Physical Exam General: Alert, In no apparent distress, Oriented x3, Cooperative HEENT: Atraumatic Neck: Supple Respiratory: Expiratory wheezes, Inspiratory wheezes, Other (Overall improved) Cardiovascular: Normal pulses, Regular rate/rhythm Gastrointestinal: Normal bowel sounds, Soft and benign, Non-distended, No tenderness, No masses, No rebound, No guarding Musculoskeletal: No erythema, No tenderness, No warmth Integumentary: No tenderness/swelling, No erythema, No warmth, No cyanosis Neurological: Normal speech, Normal strength at 5/5 x4 extr, Normal tone, Normal affect Lymphatics: No axilla or inguinal lymphadenopathy - Studies Microbiology Data (last 24 hrs): 04/26/18 21:23 Clean Catch Urine [place] Count - Final >100,000 CFU/ML. 04/26/18 21:23 Clean Catch Urine - Final Escherichia Coli Medications List Reviewed: Yes Assessment & Plan - Problems (Diagnosis) (1) Foot ulcer Onset Date: 04/27/18 Current Visit: Yes Status: Chronic Plan: Healed left foot ulcer. Patient has not seen wound care in quite some time. No significant erythema noted. Will consult her infectious disease doctor to evaluate and make recommendations. Patient will need follow up as an outpatient. No need for antibiotic therapy at this time. Qualifiers: Laterality: left (2) Dehydration Onset Date: 04/27/18 Current Visit: Yes Status: Acute Plan: Patient appears dry. Renal function improved. Will continue IV fluids. Encourage oral intake. Anticipate discharge in the next 24 hr. Patient with UTI and pneumonia. Adjustments to medications have been addressed. Patient also with Trichomonas. Will treat infection. STD information provided. Her partner will need to be treated. Will evaluate for syphilis, GC and chlamydia along with HIV/hepatitis. (3) Renal insufficiency Onset Date: 04/27/18 Current Visit: Yes Status: Acute Plan: Likely from dehydration. This has improved. Will continue with IV fluids. If taking oral intake well then will discontinue IV fluids. (4) Insomnia Onset Date: 04/27/18 Current Visit: Yes Status: Chronic Plan: Patient requests medication. Will provide medication tonight as needed. Qualifiers: Insomnia type: unspecified Qualified Code(s): G47.00 - Insomnia, unspecified (5) Hx of osteomyelitis Onset Date: 04/27/18 Current Visit: Yes Status: Chronic Plan: Continue as above. No infectious process noted to her left foot. Will consult her infectious disease doctor to evaluate and make sure she has follow up care. (6) COPD (chronic obstructive pulmonary disease) Onset Date: 05/03/17 Current Visit: No Status: Acute Plan: Acute exacerbation noted. Continue with COPD treatment. Will transition to steroids and continue COPD medication. Room-air saturations within normal range. Will check chest x-ray this morning. Anticipate discharge in the next 24 hr. Qualifiers: COPD type: COPD with acute exacerbation Qualified Code(s): J44.1 - Chronic obstructive pulmonary disease with (acute) exacerbation (7) Former tobacco use Onset Date: 05/03/17 Current Visit: No Status: Chronic Plan: Continue to address tobacco cessation (8) Hypertension Onset Date: 05/03/17 Current Visit: No Status: Chronic Plan: Blood pressure elevated. Will continue with her medication. Qualifiers: Hypertension type: essential hypertension Qualified Code(s): I10 - Essential (primary) hypertension (9) PVD (peripheral vascular disease) Onset Date: 05/08/17 Current Visit: No Status: Chronic Plan: Will provide DVT prophylaxis. Will start aspirin 81 mg. (10) Pneumonia Onset Date: 04/27/18 Current Visit: Yes Status: Suspected Plan: Pneumonia suspected. Pro calcitonin was elevated. Will recheck chest x-ray can today. Will make adjustments to antibiotics. Qualifiers: Pneumonia type: due to unspecified organism Laterality: right Lung location: lower lobe of lung Qualified Code(s): J18.1 - Lobar pneumonia, unspecified organism (11) UTI (urinary tract infection) Current Visit: Yes Status: Acute Plan: Urine culture positive for E coli and Trichomonas. Will start Levaquin orally. Options for Trichomonas infection offered. Will provide metronidazole 2 g 1 time dose. It was explained to the patient that she had a sexually transmitted infection. Her partner will need to be treated with Trichomonas as well. STD education will be provided. Will check hepatitis panel, HIV, and syphilis. Will check to see if the urine culture can be evaluated for GC and Chlamydia. Qualifiers: Urinary tract infection type: site unspecified (12) Trichomonas infection Current Visit: Yes Status: Acute Plan: Patient will be treated with Metronidazole 2 g x1 dose. Her partner will need to be treated. Education on Trichomonas given. Will check urine for GC/ Chlamydia. Will send lab for hepatitis, HIV and syphilis. Discharge Plan: Home Plan to discharge in: 24 Hours Time Spent Managing Pts Care (In Minutes): 55
[2018-04-28] MEDS: PROMOD 30 ML DOSE PO SCH (09:00)
[2018-04-28] MEDS ORDERED: NACHLORIDE 0.45% 1,000 ML IV SCH (09:00)
[2018-04-28] MEDS ORDERED: predniSONE 20 MG TAB PO SCH (09:00)
[2018-04-28] MEDS ORDERED: levoFLOXacin 250 MG TAB PO SCH (09:00)
[2018-04-28] MEDS ORDERED: METOPROLOL TAR 50 MG TAB PO SCH (09:00)
[2018-04-28] MEDS ORDERED: NIFEDIPINE XL 60 MG TABLET PO SCH (09:00)
[2018-04-28] MEDS: ENOXAPARIN 40 MG/0.4 ML SQ SCH (09:08)
[2018-04-28 09:20] LABS: RPR Titer ND
[2018-04-28 11:07] VITALS: O2SAT 94
[2018-04-28 13:26] VITALS: BP 182/82; TEMP 97.6
[2018-04-28] MEDS: ACETAMINOPHEN 500 MG TAB PO PRN (16:12)
--- NOTE | 2018-04-28 16:19 | P.DS ---
Admission Date: 04/26/18 Discharge Date: 04/28/18 Primary Care Provider: Dr. Rothman; ID-Dr. Guadalupe Disposition: ROUTINE DISCHARGE Discharge Condition: GOOD Reason for Admission: COPD exacerbation Consultations: Pulmonary-Dr. House - Problems (1) Foot ulcer Onset Date: 04/27/18 Current Visit: Yes Status: Chronic Qualifiers: Laterality: left (2) Dehydration Onset Date: 04/27/18 Current Visit: Yes Status: Acute (3) Renal insufficiency Onset Date: 04/27/18 Current Visit: Yes Status: Acute (4) Insomnia Onset Date: 04/27/18 Current Visit: Yes Status: Chronic Qualifiers: Insomnia type: unspecified Qualified Code(s): G47.00 - Insomnia, unspecified (5) Hx of osteomyelitis Onset Date: 04/27/18 Current Visit: Yes Status: Chronic (6) COPD (chronic obstructive pulmonary disease) Onset Date: 05/03/17 Current Visit: No Status: Acute Qualifiers: COPD type: COPD with acute exacerbation Qualified Code(s): J44.1 - Chronic obstructive pulmonary disease with (acute) exacerbation (7) Former tobacco use Onset Date: 05/03/17 Current Visit: No Status: Chronic (8) Hypertension Onset Date: 05/03/17 Current Visit: No Status: Chronic Qualifiers: Hypertension type: essential hypertension Qualified Code(s): I10 - Essential (primary) hypertension (9) PVD (peripheral vascular disease) Onset Date: 05/08/17 Current Visit: No Status: Chronic (10) Pneumonia Onset Date: 04/27/18 Current Visit: Yes Status: Suspected Qualifiers: Pneumonia type: due to unspecified organism Laterality: right Lung location: lower lobe of lung Qualified Code(s): J18.1 - Lobar pneumonia, unspecified organism (11) UTI (urinary tract infection) Current Visit: Yes Status: Acute Qualifiers: Urinary tract infection type: site unspecified (12) Trichomonas infection Current Visit: Yes Status: Acute Brief History of Present Illness: 68-year-old female present emergency room with shortness of breath. Patient with history of COPD and tobacco abuse. She also admits using marijuana. Patient was significantly with shortness of breath. Patient required BiPAP. Patient was admitted for further treatment. Patient suspected with pneumonia. Hospital Course: During the course of her stay her shortness of breath improved. Patient presented with shortness of breath secondary to COPD exacerbation with right lower lobe pneumonia. Patient evaluated by pulmonology. Patient was weaned off BiPAP. Chest x-ray showed improvement. At discharge she will continue with Advair 250 mcg 1 puff twice daily and Pro air 2 puffs 3 times a day as needed for shortness of breath. She will also continue with prednisone 20 mg 1 pill twice daily for 5 days then 1 pill once daily for 5 days Patient will continue with Levaquin 500 mg daily for 7 days. Recommendation to recheck chest x-ray in 4-6 weeks to monitor resolution. Recommendation is for the patient follow up with pulmonology as an outpatient to further address. Patient admits tobacco and marijuana use. Apparently the patient was caught smoking in the bathroom. There was some concern that she use to marijuana in the bathroom. She was counseled on this in detail. Patient denied using marijuana in the hospital. There was some evidence that she may have used it. Prior to discharge a urine drug screen would be obtained if the patient is willing to give her urine. Patient counseled extensively on tobacco and marijuana cessation. Patient was also found to have a urinary tract infection. Urine culture also showed Trichomonas. Urine culture was positive for E coli as well. Patient was given metronidazole 2 g 1 time dose for Trichomonas. She was educated on sexually transmitted infections. It was sent off for GC/chlamydia and Lab obtained for Hepatitis, RPR, and HIV. This can be followed up as an outpatient. For her UTI she will continue with Levaquin 500 mg daily for 7 days. UTI prevention will need to be enforced. She was also counseled that she needs to continue with protected sex. She also was counseled on the need for her partner to be treated for Trichomonas. Patient had renal insufficiency. This is likely from dehydration. Patient received IV fluids. This resolved at discharge. Patient likely has GERD. Patient will continue with Protonix 40 mg 1 pill once daily. Patient has hypertension. She will continue with metoprolol 100 mg 1 pill twice daily and Procardia 10 mg 1 pill twice daily. Recommendation is to maintain blood pressures less 150/80. Further adjustment can be done by her PCP. Vital Signs/Physical Exam: Temp Pulse Resp BP Pulse Ox 97.6 F 86 20 182/82 H 90 L 04/28/18 12:00 04/28/18 12:00 04/28/18 12:00 04/28/18 12:00 04/28/18 12:00 General: Alert, In no apparent distress, Oriented x3, Cooperative HEENT: Atraumatic Neck: Supple Respiratory: Clear to auscultation bilaterally, Normal air movement Cardiovascular: Normal pulses, Regular rate/rhythm Gastrointestinal: Normal bowel sounds, Soft and benign, Non-distended, No tenderness, No masses, No rebound, No guarding Musculoskeletal: No erythema, No tenderness, No warmth Integumentary: No tenderness/swelling, No erythema, No warmth, No cyanosis Neurological: Normal speech, Normal strength at 5/5 x4 extr, Normal tone, Normal affect Laboratory Data at Discharge: WBC 19.4 K/uL (4.3-10.9) H D 04/28/18 06:21 Hgb 11.8 g/dL (12.0-15.0) L 04/28/18 06:21 Hct 36.1 % (36.0-45.0) 04/28/18 06:21 Plt Count 306 K/uL (152-406) 04/28/18 06:21 PT 11.5 SECONDS (9.5-12.5) 04/26/18 20:30 INR 0.97 04/26/18 20:30 Sodium 143 mmol/L (136-145) 04/28/18 06:21 Potassium 3.6 mmol/L (3.5-5.1) 04/28/18 06:21 BUN 15 mg/dL (7-18) 04/28/18 06:21 Creatinine 0.80 mg/dL (0.55-1.3) 04/28/18 06:21 Glucose 143 mg/dL (74-106) H 04/28/18 06:21 Magnesium 1.9 mg/dL (1.8-2.4) 04/28/18 06:21 Total Bilirubin 0.2 mg/dL (0.2-1.0) 04/26/18 20:30 AST 14 U/L (15-37) L 04/26/18 20:30 ALT 12 U/L (12-78) 04/26/18 20:30 Alkaline Phosphatase 67 U/L (45-117) 04/26/18 20:30 Home Medications: Albuterol Sulfate [Proair Hfa] 8.5 gm IH TID PRN #1 hfa.[email or web address] 04/28/18 Fluticasone/Salmeterol [Advair 250-50 Diskus] 1 each IH BID #1 blst.w.dev Levofloxacin [Levaquin] 500 mg PO DAILY #7 tablet 04/28/18 Metoprolol Tartrate 100 mg PO BID 04/28/18 Nifedipine [Procardia] 10 mg PO BID 04/28/18 Pantoprazole [Protonix Tab] 40 mg PO DAILY #30 tab 04/28/18 predniSONE [Prednisone*] 20 mg PO SEECOM #15 tab 04/28/18 New Medications: Albuterol Sulfate [Proair Hfa] 8.5 gm IH TID PRN #1 hfa.aer.ad PRN Reason: Shortness Of Breath Fluticasone/Salmeterol [Advair 250-50 Diskus] 1 each IH BID #1 blst.w.dev Levofloxacin [Levaquin] 500 mg PO DAILY #7 tablet Pantoprazole [Protonix Tab] 40 mg PO DAILY #30 tab predniSONE [Prednisone*] 20 mg PO SEECOM #15 tab Patient Discharge Instructions: 1. Patient will need to follow up her PCP in 1 week to follow up this hospitalization. 2. Patient presented with shortness of breath secondary to COPD exacerbation with right lower lobe pneumonia. Patient evaluated by pulmonology. Patient was weaned off BiPAP. Chest x-ray showed improvement. At discharge she is without any significant shortness of breath. She does not require oxygen. At discharge she will continue with Advair 250 mcg 1 puff twice daily and Pro air 2 puffs 3 times a day as needed for shortness of breath for her COPD. She will also continue with prednisone 20 mg 1 pill twice daily for 5 days then 1 pill once daily for 5 days Patient will continue with Levaquin 500 mg daily for 7 days for pneumonia. Recommendation to recheck chest x-ray in 4-6 weeks to monitor resolution. Recommendation is for the patient follow up with pulmonology as an outpatient to further address. 3. Patient admits tobacco and marijuana use. Apparently the patient was caught smoking in the bathroom. There was some concern that she use to marijuana in the bathroom. She was counseled on this in detail. Patient denied using marijuana in the hospital. There was some evidence that she may have used it. Prior to discharge a urine drug screen will try to be obtained. Patient will be provided education on tobacco and marijuana cessation. 4. Patient was also found to have a urinary tract infection. Urine culture also showed Trichomonas. Urine culture was positive for E coli. Patient was given metronidazole 2 g 1 time dose for Trichomonas. Lab sent for GC/chlamydia and Lab obtained for Hepatitis, RPR, and HIV. This can be followed up as an outpatient. For her UTI she will continue with Levaquin 500 mg daily for 7 days. UTI prevention and education on Trichomonas will be provided. He will be important for her partner to be treated for Trichomonas. 5. Patient had renal insufficiency likely from dehydration. Patient received IV fluids. This resolved at discharge. 6. Patient likely has GERD. Patient will continue with Protonix 40 mg 1 pill once daily. 7. Patient has hypertension. She will continue with metoprolol 100 mg 1 pill twice daily and Procardia 10 mg 1 pill twice daily. Recommendation is to maintain blood pressures less 150/80. Further adjustment can be done by her PCP. Diet: AHA Activity: Fall precautions Time spent managing pt's care (in minutes): 55
[2018-04-28 17:16] LABS: Barbiturates NEGATIVE (NEGATIVE); Benzodiazepines NEGATIVE (NEGATIVE); Cocaine NEGATIVE (NEGATIVE); METHAMPHETAM NEGATIVE (NEGATIVE); Methadone NEGATIVE (NEGATIVE); Opiates NEGATIVE (NEGATIVE); Phencyclidine NEGATIVE (NEGATIVE); THC Cannibis NEGATIVE (NEGATIVE)
[2018-04-28] MEDS ORDERED: METOPROLOL TAR 25 MG TAB PO SCH (18:00)
[2018-04-28 20:55] LABS: RPR (Rapid Plasma Reagin) NON-REACT (NON-REACT)
[2018-04-29] MEDS ORDERED: PANTOPRAZOLE 40MG TABLET PO SCH (06:30)
[2018-05-01 16:19] LABS: HIV 1/2 Antibody Diff Not indicated.; HIV AG/AB 4TH GEN Non-reactive (Non-reactive)
[2018-05-01 18:28] LABS: HBsAG Nonreactive (Nonreactive); Hepatitis A IgM Antibody Nonreactive
[2018-05-02 03:32] LABS: C.trachomatis RNA,TMA Not Detected (Not Detected)
[2018-05-02 21:12] LABS: Hepatitis C Virus RNA (PCR)log 7.04 log IU/mL
== END 2018-04-28 16:52 | disposition home or self-care (01) | DRG 190 ==
LOC: ER 20:08 → ERHOLD 23:42 → 4TH 04-27 01:41
PROVIDERS: ADMIT Internal Medicine; ATTEND Family Medicine
DX: J44.0 Chronic obstructive pulmonary disease with (acute) lower respiratory infection (principal); J18.9 Pneumonia, unspecified organism; N39.0 Urinary tract infection, site not specified; J44.1 Chronic obstructive pulmonary disease with (acute) exacerbation; E86.0 Dehydration; N28.9 Disorder of kidney and ureter, unspecified; G47.00 Insomnia, unspecified; I73.9 Peripheral vascular disease, unspecified; A59.9 Trichomoniasis, unspecified; F17.200 Nicotine dependence, unspecified, uncomplicated; B96.20 Unspecified Escherichia coli [E. coli] as the cause of diseases classified elsewhere; Z66 Do not resuscitate; K21.9 Gastro-esophageal reflux disease without esophagitis; Z99.81 Dependence on supplemental oxygen; Z79.52 Long term (current) use of systemic steroids
CPT/HCPCS: 36415; 71045; 80048; 80074; 80076; 80307; 81003; 81015; 83735; 83880; 84145; 84484; 85025; 85610; 86592; 87040; 87077; 87086; 87088; 87186; 87389; 87490; 87522; 87590; 93005; 94640; 94660; 94760; 96365; 96366; 96367; 96375; 97163; 99285; J0456; J0696; J1100; J1650; J2920; J3010; J3475; J7030; J7512; J7605